=== PATIENT | female | born 1945 | race African-American/Black ===

== ENCOUNTER 2020-07-24 10:33 | Emergency (ER) | payer OTHER ==
[~2020-07-24] VITALS: Ht 167.6 cm; Wt 89.4 kg
[2020-07-24] MEDS ORDERED: NORVASC10 MG PO (11:06)
[2020-07-24] MEDS ORDERED: LISINOPRIL10 MG PO (11:07)
[2020-07-24] MEDS ORDERED: ONE-DAILY MULT1 EAC1 PO (11:08)
[2020-07-24] MEDS ORDERED: FISH OIL 1,001000 M3 PO (11:08)
[2020-07-24] MEDS ORDERED: IBUPROFEN 800800 MG PO (13:36)
[2020-07-24] MEDS ORDERED: TYLENOL325 M1 PO (13:36)
[2020-07-24 14:04] VITALS: BP 144/72
== END 2020-07-24 14:04 | disposition home or self-care (01) ==
LOC: ER 10:33
DX: M17.11 Unilateral primary osteoarthritis, right knee (principal); M71.21 Synovial cyst of popliteal space [Baker], right knee; M25.551 Pain in right hip; M79.604 Pain in right leg; I10 Essential (primary) hypertension; Z91.013 Allergy to seafood; Z79.899 Other long term (current) drug therapy